=== PATIENT | male | born 1985 | race Caucasian/White ===

== ENCOUNTER 2017-08-30 01:20 | Emergency (ER) | payer OTHER ==
--- NOTE | 2017-08-30 02:33 | EDM.PDOC ---
ED HPI GENERAL MEDICAL PROBLEM - General Chief Complaint: Lower Extremity Injury/Pain Stated Complaint: RIGHT LEG- BRUISED AND SWOLLEN Time Seen by Provider: 08/30/17 02:32 Source of Information: Reports: Patient History Limitations: Reports: No Limitations - History of Present Illness INITIAL COMMENTS - FREE TEXT/NARRATIVE: HISTORY AND PHYSICAL: History of present illness: 32-year-old male presented in the emergency department with chief complaint of right hip swelling and pain. Patient states on Thursday he was running and ran into a counter with his right hip. States that there was immediate pain and swelling. He denies any other significant trauma. There has been significant ecchymosis as well as swelling to that extremity. He states that he came into the emergency department today secondary to increased swelling. States that the pain is currently 2 out of 10. Has not noticed any changes in his lower extremity. Denies any chest pain, palpitations, shortness breath, syncopal episodes, or focal neurologic deficits. Review of systems: As per history of present illness and below otherwise all systems reviewed and negative. Past medical history: As per history of present illness and as reviewed below otherwise noncontributory. Surgical history: As per history of present illness and as reviewed below otherwise noncontributory. Social history: No reported history of drug or alcohol abuse. Family history: As per history of present illness and as reviewed below otherwise noncontributory. Physical exam: HEENT: Atraumatic, normocephalic, pupils reactive, negative for conjunctival pallor or scleral icterus, mucous membranes moist, throat clear, neck supple, nontender, trachea midline. Lungs: Clear to auscultation, breath sounds equal bilaterally, chest nontender. Heart: S1S2, regular, negative for clicks, rubs, or JVD. Abdomen: Soft, nondistended, nontender. Negative for masses or hepatosplenomegaly. Negative for costovertebral tenderness. Pelvis: Stable nontender. Genitourinary: Deferred. Rectal: Deferred. Extremities: Atraumatic, negative for cords or calf pain. Neurovascular unremarkable. Neuro: Awake, alert, oriented. Cranial nerves II through XII unremarkable. Cerebellum unremarkable. Motor and sensory unremarkable throughout. Exam nonfocal. Diagnostics: Right femur x-ray, right Doppler ultrasound venous Therapeutics: Impression: Right hip contusion Plan: Right femur x-ray as well as right Doppler ultrasound was negative for any significant findings. Patient is currently having only minimal pain not suspicious for a compartment type syndrome. He is instructed to follow-up with his primary care physician and return to emergency department if he had any worsening pain immediately. right leg Pain Score (Numeric/FACES): 1 - Related Data Allergies Allergy/AdvReac Type Severity Reaction Status Date / Time amoxicillin Allergy Other Verified 08/30/17 01:29 Home Meds: Home Meds Gabapentin [Neurontin] 300 mg PO Q8HR 08/30/17 [History] LORazepam [Lorazepam] 20 mg PO DAILY 08/30/17 [History] lamoTRIgine [Lamotrigine ER] 1 cap PO DAILY 08/30/17 [History] Past Medical History HEENT History: Reports: None Cardiovascular History: Reports: None Respiratory History: Reports: None Gastrointestinal History: Reports: None Genitourinary History: Reports: None Musculoskeletal History: Reports: Other (See Below) Other Musculoskeletal History: fractured skull and eye socket Neurological History: Reports: None Psychiatric History: Reports: Anxiety Endocrine/Metabolic History: Reports: None Hematologic History: Reports: None Immunologic History: Reports: None Oncologic (Cancer) History: Reports: None Dermatologic History: Reports: None - Infectious Disease History Infectious Disease History: Reports: Chicken Pox - Past Surgical History Head Surgeries/Procedures: Reports: None HEENT Surgical History: Reports: None Cardiovascular Surgical History: Reports: None Respiratory Surgical History: Reports: None GI Surgical History: Reports: None Male Surgical History: Reports: None Endocrine Surgical History: Reports: None Neurological Surgical History: Reports: None Musculoskeletal Surgical History: Reports: None Oncologic Surgical History: Reports: None Dermatological Surgical History: Reports: None Social & Family History - Family History Family Medical History: Noncontributory - Tobacco Use Smoking Status *Q: Never Smoker Second Hand Smoke Exposure: No - Caffeine Use Caffeine Use: Reports: Coffee - Recreational Drug Use Recreational Drug Use: No Review of Systems - Review of Systems Review Of Systems: See Below ED EXAM, GENERAL - Physical Exam Exam: See Below Course - Vital Signs Last Recorded V/S: Last Vital Signs Temp 98.0 F 08/30/17 01:30 Pulse 118 H 08/30/17 01:30 Resp 18 08/30/17 01:30 BP 143/92 H 08/30/17 01:30 Pulse Ox 98 08/30/17 01:30 - Orders/Labs/Meds Orders: Active Orders 24 hr Category Date Time Status Femur Min 2V Rt [CR] Stat Exams 08/30/17 02:39 Taken Venous Doppler Lwr Ext Rt [US] Stat Exams 08/30/17 02:39 Taken Departure - Departure Time of Disposition: 03:56 Disposition: Home, Self-Care 01 Condition: Good Clinical Impression: Contusion, hip and thigh Qualifiers: Encounter type: initial encounter Laterality: right Qualified Code(s): S70.01XA - Contusion of right hip, initial encounter; S70.11XA - Contusion of right thigh, initial encounter - Discharge Information Referrals: PCP,None [Primary Care Provider] - Forms: ED Department Discharge Additional Instructions: My general discharge The following information is given to patients seen in the emergency department who are being discharged to home. This information is to outline your options for follow-up care. We provide all patients seen in our emergency department with a follow-up referral. The need for follow-up, as well as the timing and circumstances, are variable depending upon the specifics of your emergency department visit. If you don't have a primary care physician on staff, we will provide you with a referral. We always advise you to contact your personal physician following an emergency department visit to inform them of the circumstance of the visit and for follow-up with them and/or the need for any referrals to a consulting specialist. The emergency department will also refer you to a specialist when appropriate. This referral assures that you have the opportunity for follow-up care with a specialist. All of these measure are taken in an effort to provide you with optimal care, which includes your follow-up. Under all circumstances we always encourage you to contact your private physician who remains a resource for coordinating your care. When calling for follow-up care, please make the office aware that this follow-up is from your recent emergency room visit. If for any reason you are refused follow-up, please contact the [facility] Emergency Department at and asked to speak to the emergency department charge nurse. [facility] [address] [place] [address] [id number] [facility] [address] [place] [address] Continue icing area and taking ibuprofen and Tylenol for pain relief. During the emergency department if any worsening symptoms specifically severe increasing pain. - My Orders Last 24 Hours: My Active Orders 08/30/17 02:39 Femur Min 2V Rt [CR] Stat Venous Doppler Lwr Ext Rt [US] Stat - Assessment/Plan Last 24 Hours: My Active Orders 08/30/17 02:39 Femur Min 2V Rt [CR] Stat Venous Doppler Lwr Ext Rt [US] Stat
--- NOTE | 2017-08-31 13:24 | CR ---
EXAM DATE: 08/30/17 PATIENT'S AGE: 32 Patient: MARCELLE DOSS Facility: [place], [place] Site . Site : 1985 Study: XRay Extremity Right FEMUR [id number]/3/2018 3:03:21 AM Ordering Physician: Regan Grissom Final Report: INDICATION: Right leg edema and pain after "hit thigh on porch corner" TECHNIQUE: Femur radiograph 4 views right COMPARISON: None FINDINGS: Bones: No acute fractures or aggressive bone lesions are identified. Joints: The hip and visualized knee joints are unremarkable in appearance. No significant joint effusion is seen. Soft tissues: Unremarkable. No radiopaque foreign bodies are seen. IMPRESSION: 1. No acute osseous injuries or abnormalities are noted. Dictated by: Domenico Cancino MD @ 08/30/2017 03:06:03 (Electronic Signature) Report Signed by Proxy. MAURICIO
--- NOTE | 2017-08-31 13:25 | US ---
EXAM DATE: 08/30/17 PATIENT'S AGE: 32 Patient: MARCELLE DOSS Facility: [place], [place] Site . Site : 1985 Study: US Extremity Right MW [id number]/3/2018 3:42:14 AM Ordering Physician: Doctor Santacruz Final Report: INDICATION: Fell and hit leg on counter 4 days ago, bruising and numbness TECHNIQUE: Ultrasound venous duplex right lower extremity. Mccartney-scale, color Doppler, and spectral Doppler imaging were performed with compression and augmentation. COMPARISON: None FINDINGS: Deep veins: The right femoral, common femoral, popliteal, and visualized calf veins are fully compressible, demonstrate normal color flow, and normal response to mechanical augmentation. The Duplex Doppler waveforms are normal in appearance. The visualized contralateral left common femoral vein is patent. Superficial veins: The visualized greater saphenous and superficial veins of the leg and calf are unremarkable. Soft tissues: No masses or cysts are identified. No adenopathy is seen. IMPRESSION: 1. No sonographic evidence of deep venous thrombosis seen. Dictated by: Domenico Cancino MD @ 08/30/2017 03:43:55 (Electronic Signature) Report Signed by Proxy. MAURICIO
== END 2017-08-30 04:08 | disposition home or self-care (01) ==
LOC: MW.ED 01:20
DX: S70.01XA Contusion of right hip, initial encounter (principal); S70.11XA Contusion of right thigh, initial encounter; Z79.899 Other long term (current) drug therapy; W22.8XXA Striking against or struck by other objects, initial encounter
CPT/HCPCS: 73552-26-LT; 73552-RT; 93971-26-RT; 93971-RT; 99283; 99284-25